=== PATIENT | female | born 1960 | race Caucasian/White ===

== ENCOUNTER 2024-10-04 10:09 | Emergency (ER) | payer MEDICARE, BC ==
[~2024-10-04] VITALS: Ht 154.9 cm; Wt 55.3 kg
[2024-10-04] MEDS ORDERED: ALBU8.5H8 INH (11:24)
[2024-10-04] MEDS ORDERED: AZIT500T PO (11:24)
[2024-10-04] MEDS ORDERED: PRED50TA PO (11:24)
[2024-10-04] MEDS ORDERED: AZITHROMYCIN 250 MG TABLET ONE (11:35)
[2024-10-04] MEDS ORDERED: predniSONE 50 MG TABLET ONE (11:35)
[2024-10-04] MEDS: predniSONE 50 MG TABLET PO ONE (11:37)
[2024-10-04] MEDS: AZITHROMYCIN 250 MG TABLET PO ONE (11:37)
[2024-10-04 11:50] VITALS: BP 123/71; TEMP 97.2; O2SAT 99
== END 2024-10-04 12:06 | disposition home or self-care (01) ==
LOC: ER 10:09
DX: J18.0 Bronchopneumonia, unspecified organism (principal); E03.9 Hypothyroidism, unspecified; E78.5 Hyperlipidemia, unspecified; K21.9 Gastro-esophageal reflux disease without esophagitis; Z79.52 Long term (current) use of systemic steroids
CPT/HCPCS: 99283; 71045; J7512; A4606; A4663; Q0144

== ENCOUNTER 2025-03-02 18:20 | Emergency (ER) | payer MEDICARE, BC ==
[~2025-03-02] VITALS: Ht 144.8 cm; Wt 54.4 kg
[~2025-03-02 18:20] MED LIST: ALBU8.5H8 INH; AZIT500T PO; PRED50TA PO
[2025-03-02] MEDS ORDERED: LORAZEPAM 2 MG/1 ML VIAL ONE (18:57)
[2025-03-02] MEDS ORDERED: ONDANSETRON 4 MG/2 ML VIAL ONE (18:58)
[2025-03-02 19:01] LABS: BASOPHILS % (AUTO) 0.4 % (0.0-2.0); EOSINOPHILS # (AUTO) 0.1 K/uL (0.0-0.7); HEMATOCRIT 43.2 % (31.2-41.9); HEMOGLOBIN 14.3 g/dL (10.9-14.3); LYMPHOCYTES # (AUTO) 2.2 K/uL (0.8-4.8); LYMPHOCYTES % (AUTO) 29.1 % (20.5-51.5); MEAN CORPUSCULAR HEMOGLOBIN 28.6 uug (24.7-32.8); MEAN CORPUSCULAR HGB CONC 33 g/dL (32.3-35.6); MEAN CORPUSCULAR VOLUME 86.5 fL (75.5-95.3); MONOCYTES # (AUTO) 0.6 K/uL (0.1-1.30); MONOCYTES % (AUTO) 8.1 % (0.0-11.0); NEUTROPHILS # (AUTO) 4.5 K/uL (1.8-8.9); NEUTROPHILS % (AUTO) 60.4 % (38.5-71.5); PLATELET COUNT (AUTO) 279 K/uL (179-408); RED BLOOD CELL COUNT(AUTO) 4.99 MIL/uL (3.63-4.92); RED CELL DISTRIBUTION WIDTH 12.9 % (12.3-17.7); WHITE BLOOD COUNT (AUTO) 7.5 K/uL (3.8-11.8)
[2025-03-02] MEDS ORDERED: ONDA4TAB11 PO (19:03)
[2025-03-02] MEDS ORDERED: MECL-159 PO (19:03)
[2025-03-02] MEDS: ONDANSETRON 4 MG/2 ML VIAL IV ONE (19:04)
[2025-03-02] MEDS: LORAZEPAM 2 MG/1 ML VIAL IV ONE (19:04)
[2025-03-02 19:07] LABS: CALCIUM 9.3 mg/dL (8.5-10.1); CREATININE 0.7 mg/dL (0.6-1.3); POTASSIUM 4.3 mmol/L (3.5-5.1)
[2025-03-02] MEDS ORDERED: MECLIZINE HCL 25 MG TABLET ONE (19:41)
[2025-03-02] MEDS: MECLIZINE HCL 25 MG TABLET PO ONE (19:44)
[2025-03-02 19:59] VITALS: BP 120/74; O2SAT 98
== END 2025-03-02 20:01 | disposition home or self-care (01) ==
LOC: ER 18:20
DX: H81.10 Benign paroxysmal vertigo, unspecified ear (principal); R11.2 Nausea with vomiting, unspecified; E03.9 Hypothyroidism, unspecified; E78.5 Hyperlipidemia, unspecified; Z79.52 Long term (current) use of systemic steroids
CPT/HCPCS: 99284; 96374; 96375; 80048; 85025; 36415; J2060; J2405; A4606; A4663; J8597